=== PATIENT | female | born 1945 | race Caucasian/White ===

== ENCOUNTER → 2017-06-22 | Outpatient (CLI) | payer OTHER | LOC: FIMAGING 10:04 | PROVIDERS: ATTEND Internal Medicine Rheumatology | DX: M15.4 Erosive (osteo)arthritis (principal) ==

== ENCOUNTER → 2017-09-22 | Outpatient (CLI) | payer OTHER | LOC: FIMAGING 13:21 | PROVIDERS: ATTEND Internal Medicine Rheumatology | DX: Z12.31 Encounter for screening mammogram for malignant neoplasm of breast (principal); Z13.820 Encounter for screening for osteoporosis; M81.0 Age-related osteoporosis without current pathological fracture | CPT/HCPCS: G0202 ==

== ENCOUNTER → 2017-09-24 | Outpatient (CLI) | payer OTHER | LOC: FIMAGING 09:55 | PROVIDERS: ATTEND Internal Medicine | DX: R91.8 Other nonspecific abnormal finding of lung field (principal); J21.9 Acute bronchiolitis, unspecified; J47.9 Bronchiectasis, uncomplicated ==

== ENCOUNTER 2017-12-15 09:22 | Day surgery (SDC) | payer OTHER ==
[2017-12-15] MEDS ORDERED: LR 1,000 ML IV ONE (09:44)
[2017-12-15] MEDS ORDERED: LIDOCAINE 1% 2 ML INJ ID PRN (09:44)
[2017-12-15] MEDS ORDERED: LIDOCAINE HCL 4% TOPICAL SOLN 50ML MM ONE (10:00)
[2017-12-15] MEDS ORDERED: ALBUTEROL 3 ML DEYVIAL IH ONE (10:00)
[2017-12-15 10:22] VITALS: PULSE 65; TEMP 97.5
[2017-12-15] MEDS ORDERED: LIDOCAINE 1% 300 MG/30 ML SDV ONE (10:35)
[2017-12-15] MEDS ORDERED: LIDOCAINE 2% JELLY 5 ML TUBE ONE (10:35)
[2017-12-15] MEDS ORDERED: MIDAZOLAM 2 MG/2 ML VIAL ONE ×2 (10:59→11:02)
[2017-12-15] MEDS ORDERED: fentaNYL 100 MCG/2 ML INJ ONE ×2 (10:59→11:02)
--- NOTE | 2017-12-15 11:01 | PDPROPOC ---
Sedation Plan of Care Sedation Plan of Care: vital signs stable, mental status noted, patient educated of risks, benefits, alternatives, patient can tolerate sedation ASA Classification: ASA 2 Planned drugs: fentanyl, midazolam Mallampati Score: Class 2 Mallampati Reference Image: Patient passed 3-3-2 rule?: Yes
--- NOTE | 2017-12-15 11:06 | PDHPUP ---
History & Physical Update H&P update statement: This history and physical update is based on an assessment of the patient which was completed after admission or registration (within 24 hours), but prior to the surgery/procedure. H&P update: H&P reviewed & patient examined, no change in patient's condition since H&P completed
[2017-12-15] MEDS ORDERED: fentaNYL 100 MCG/2 ML INJ IVP ONE (11:21)
[2017-12-15] MEDS ORDERED: MIDAZOLAM 2 MG/2 ML VIAL IVP ONE (11:21)
[2017-12-15 11:23] VITALS: RESP 15; O2SAT 94
--- NOTE | 2017-12-15 11:29 | BVPULMO ---
[facility]- Pulmonology Patient Name: Eusebia Estrella Procedure Date: 12/15/2017 10:30 AM Patient Type: Outpatient Attending MD/ER Physician: Min Rosas MD Procedure: Bronchoscopy Indications: Unresolving right upper lobe infiltrate, Unresolving right middle lobe infiltra te Providers: Min Rosas MD Medicines: Lidocaine 4% via nebulizer with Albuterol 2.5 mg, Fentanyl 75 mcg IV, Midazolam 3 mg mg IV, Lidocaine 1% applied to cords 2 mL, Lidocaine 1% applied to the tracheobronchial tree 4 mL, Oxygen 4 L/min Complications: No immediate complications Procedure: After informed consent, a time out was performed. N95 masks were worn, and the procedure was done in a negative pressure room. The patient was given appropria te topical anesthesia and intravenous sedation. The fiberopic bronchoscope was pas sed via a bite block orally into the larynx and subsequently into the lower trachea bronchial tree. Throughout the procedure, the patient's blood pressure, pulse, and oxygen saturations were monitored continuously. The Bronchoscope was introduced through the mouth and advanced to the tracheobronchial tree. The procedure was accomplished without difficulty. The patient tolerated the procedure well. The total duration of the procedure was 20 minutes. Findings: Respiratory tract: The larynx is normal. The vocal cords appear normal. The subglottic space is normal. The trachea is of normal caliber. The rai is sha rp. The entire tracheobronchial tree was examined to at least the first subsegmenta l level. Bronchial mucosa and anatomy are normal; there are no endobronchial lesi ons and no secretions, except in the right middle lobe where there was copious amou nt of creamy salvador secretions. Bronchoalveolar lavage was performed in the right middle lobe of the lung and s ent for cell count, bacterial culture, viral smears & culture, and fungal & AF[employer] abelardo lysis and cytology and routine cytology. 60 mL of fluid were instilled. 40 mL were returned. The return was cloudy. There were no mucoid plugs in the return fluid . Post Op Diagnosis: - Unresolving right upper lobe infiltrate - Unresolving right middle lobe infiltrate - Bronchoalveolar lavage was performed. - The examination was normal. - Infiltrate Estimated Blood Loss: Estimated blood loss: none. Recommendation: - Await BAL results. - Follow up with bronchoscopist in 1 month. Attending Participation: I personally performed the entire procedure. Min Rosas MD Min Rosas MD 12/15/2017 11:29:28 AM This report has been signed electronicallyThomas MD Alison Number of Addenda: 0 Note Initiated On: 12/15/2017 10:30 AM [email or web address]
[2017-12-15 11:58] VITALS: BP 118/68
== END 2017-12-15 12:15 | disposition home or self-care (01) ==
LOC: FSGY 09:22
PROVIDERS: ATTEND Internal Medicine Pulmonary Disease
PROC: 0B958ZX Drainage of Right Middle Lobe Bronchus, Via Natural or Artificial Opening Endoscopic, Diagnostic (ICD-10-PCS; principal; 2017-12-15 11:00)
DX: J47.9 Bronchiectasis, uncomplicated (principal); M81.0 Age-related osteoporosis without current pathological fracture; M06.9 Rheumatoid arthritis, unspecified; E78.5 Hyperlipidemia, unspecified; H40.9 Unspecified glaucoma; G47.00 Insomnia, unspecified
CPT/HCPCS: J0171; J2250; J3010; J7613

== ENCOUNTER → 2018-07-19 | Outpatient (CLI) | payer OTHER | LOC: FIMAGING 15:38 | PROVIDERS: ATTEND Internal Medicine Infectious Disease | DX: A31.0 Pulmonary mycobacterial infection (principal); I70.0 Atherosclerosis of aorta; M51.34 Other intervertebral disc degeneration, thoracic region ==

== ENCOUNTER → 2018-10-24 | Outpatient (CLI) | payer OTHER | LOC: FIMAGING 07:53 | PROVIDERS: ATTEND Internal Medicine | DX: Z12.31 Encounter for screening mammogram for malignant neoplasm of breast (principal) ==

== ENCOUNTER → 2019-01-23 | Outpatient (CLI) | payer OTHER | LOC: FIMAGING 12:00 | PROVIDERS: ATTEND Internal Medicine Infectious Disease | DX: A31.0 Pulmonary mycobacterial infection (principal) ==